=== PATIENT | female | born 1970 | race Caucasian/White ===

== ENCOUNTER → 2021-05-24 | Outpatient (CLI) | payer SELFPAY ==
--- NOTE | 2021-05-24 17:13 | KCIC ---
INDICATION: Reason: ABNORMAL VAGINAL BLEEDING / Spl. Instructions: / History: COMPARISON: None. TECHNIQUE: Grayscale and color ultrasound images uterus and adnexa. FINDINGS: Uterus: 78 x 39 x 30 mm. 3 mm endometrial stripe Right ovary has been removed. The left ovary is 18 x 14 x 12 mm with vascular flow. IMPRESSION: * The uterus is unremarkable within the limits of this transabdominal examination but there is some limitation secondary to lack of transvaginal technique. Electronically signed by: Kali Galdamez MD (05/24/2021 5:11 PM) [id number]
== END ==
LOC: KCIC US 13:45
PROVIDERS: ATTEND Family Medicine
DX: N93.9 Abnormal uterine and vaginal bleeding, unspecified (principal)
CPT/HCPCS: 76856